=== PATIENT | female | born 1970 | race Caucasian/White ===

== ENCOUNTER 2019-03-25 22:02 | Emergency (ER) | payer BC ==
[~2019-03-25] VITALS: Ht 160 cm; Wt 61.2 kg
[~2019-03-25 22:02] MED LIST: ATEN-41 PO; VALS160T2
[2019-03-25 22:21] VITALS: BP_SYST 150
--- NOTE | 2019-03-25 22:27 | NUR ---
Patient triaged and placed in waiting room. VSS and patient appears in no acute distress at this time. Accompanied by self, awaiting available bed, and MD notified of need for MSE.
--- NOTE | 2019-03-26 00:30 | NUR ---
Patient to ER bed 2 for evaluation.
--- NOTE | 2019-03-26 00:35 | NUR ---
Patient to ER via triage for evaluation of right sided lower back pain s/p pulled muscle after lifting something. Patient is awake, alert and oriented in no acute distress, vital signs stable, respirations even and unlabored, skin warm and dry to touch. Patient able to ambulate without difficulty with slow, steady gait to bed 2. Awaiting evaluation by ER MD, will continue to observe and assss.
--- NOTE | 2019-03-26 00:40 | NUR ---
DINA Rush at bedside examining patient.
[2019-03-26] MEDS ORDERED: KETOROLAC TROMETHAMINE 30 MG VIAL IM ONE (00:45)
[2019-03-26] MEDS ORDERED: CYCLOBENZAPRINE HCL 10 MG TABLET (FLEXERIL) PO ONE (00:45)
[2019-03-26 01:25] VITALS: BP_SYST 130
--- NOTE | 2019-03-26 01:25 | NUR ---
Patient given written and verbal discharge instructions and verbalizes understanding. ER MD discussed with patient the results and treatment provided. Patient in stable condition. ID arm band removed. Rx of Ibuprofen, Flexeril given. Patient educated on pain management and to follow up with PMD. Pain Scale 0. Opportunity for questions provided and answered. Medication side effect fact sheet provided. Patient left ER in no acute distress, able to ambulate without difficulty with slow, steady gait with friend at her side. NO adverse reaction noted to medication.
== END 2019-03-26 01:25 | disposition home or self-care (01) ==
LOC: SED 22:02
DX: M54.5 Low back pain (principal); I10 Essential (primary) hypertension; Z88.5 Allergy status to narcotic agent; Z79.899 Other long term (current) drug therapy
CPT/HCPCS: 81002; 81025; 96372; 99283; J1885